=== PATIENT | male | born 1985 | race Caucasian/White ===

== ENCOUNTER 2017-10-29 00:30 | Inpatient (IN) | payer OTHER ==
[~2017-10-29] VITALS: Ht 175.3 cm; Wt 105.2 kg
[2017-10-29 01:53] LABS: Basophils # (auto) 0 uL; Basophils % (auto) 0.6 % (0.0-2.0); Eosinophils # (auto) 0.2 uL; Eosinophils % (auto) 2.8 % (0.0-7.0); Hematocrit 45.3 % (41.0-53.0); Hemoglobin 15.7 g/dL (13.5-17.5); Lymphocytes # (auto) 1.9 uL; Lymphocytes % (auto) 28.3 % (10.0-50.0); Mean Corpuscular Hemoglobin 32.7 pg (28.0-32.0); Mean Corpuscular Hgb Conc. 34.8 g/dL (32.0-36.0); Monocytes # (auto) 0.5 uL; Monocytes % (auto) 6.8 % (0.0-12.0); Neutrophils # (auto) 4.1 uL; Neutrophils % (auto) 61.5 % (37.0-80.0); Platelet Count (auto) 281 10^3/uL (140-450); Red Blood Cells 4.82 10^6/uL (4.5-5.90); Red Cell Distribution Width 12.6 % (11.8-14.3); White Blood Cell 6.7 10^3/uL (4.4-10.8)
[2017-10-29 02:08] LABS: BUN/Creatinine Ratio 8.9; Bilirubin, Total 0.6 mg/dL (0.2-1.0); Calcium 8.5 mg/dL (8.5-10.1); Magnesium 2.5 mg/dL (1.6-2.6); Potassium 4.2 mmol/L (3.5-5.1); Total Protein 7.9 g/dL (6.4-8.2)
[2017-10-29] MEDS ORDERED: NITROGLYCERIN 0.4 MG SL TAB SL PRN (07:15)
[2017-10-29] MEDS ORDERED: ONDANSETRON HCL 4 MG/2 ML VIAL IV PRN (07:15)
[2017-10-29] MEDS ORDERED: MORPHINE SULF INJ 2 MG/ML SYRINGE 1ML IV PRN (07:15)
[2017-10-29] MEDS ORDERED: ACETAMINOPHEN 500 MG TAB PO PRN (07:15)
[2017-10-29] MEDS ORDERED: PANTOPRAZOLE 40 MG/10 ML VIAL IV ONE (07:30)
[2017-10-29 08:24] LABS: Cholesterol 121 mg/dL (< 200); HDL Cholesterol 39 mg/dL (40-59); LDL Cholesterol 81 mg/dL (< 100); Triglycerides 103 mg/dL (< 150)
[2017-10-29 08:43] VITALS: BP 146/96
[2017-10-29 08:57] VITALS: BP 132/80
[2017-10-29] MEDS: ASPirin-EC 81 mg tab PO SCH (10:20)
[2017-10-29] MEDS: PANTOPRAZOLE 40 MG TAB PO SCH (10:21)
[2017-10-29 11:42] VITALS: BP 104/65
[2017-10-29 16:50] VITALS: BP 125/89
[2017-10-29 17:00] LABS: INR 1.03 (0.9-1.15); Partial Thromboplastin Time 26.6 sec (22.64-33.71); Prothrombin Time 11.2 sec (9.37-12.3)
[2017-10-29 19:41] LABS: Alcohol, Urine < 3.0 mg/dL (0-5); Amphetamine Screen, Urine NEGATIVE (NEGATIVE); Barbiturate Scree,Urine NEGATIVE (NEGATIVE); Cannabinoid Screen, Urine NEGATIVE (NEGATIVE); Cocaine Screen, Urine NEGATIVE (NEGATIVE); Opiate Scree,Urine NEGATIVE (NEGATIVE); Phencyclidine Screen, Urine NEGATIVE (NEGATIVE)
[2017-10-29 19:50] LABS: Benzodiazephine Screen, Urine NEGATIVE (NEGATIVE)
[2017-10-29] MEDS: NAPROXEN 500 MG TAB PO SCH (19:50)
[2017-10-29 22:00] VITALS: BP 108/57
[2017-10-30 05:30] VITALS: BP 111/56
[2017-10-30 07:30] VITALS: BP 98/58
[2017-10-30 08:43] VITALS: BP 98/58
[2017-10-30] MEDS ORDERED: METOPROLOL SUCCINATE XL 50 MG TAB PO SCH (10:00)
[2017-10-30] MEDS: PANTOPRAZOLE 40 MG TAB PO SCH (10:28)
[2017-10-30] MEDS: NAPROXEN 500 MG TAB PO SCH (10:28)
[2017-10-30] MEDS: ASPirin-EC 81 mg tab PO SCH (10:28)
[2017-10-30] MEDS ORDERED: OLAN15TA16 PO (10:33)
[2017-10-30] MEDS ORDERED: MIRT30TA PO (10:33)
[2017-10-30 13:00] VITALS: BP 104/68
[2017-10-30 15:55] VITALS: BP 98/58
== END 2017-10-30 16:30 | DRG 206 ==
LOC: ER 00:30 → EDBD 00:30 → EEVIPCON 00:31 → TELE 00:31 → TELE-WESTW 08:43
PROVIDERS: ADMIT Nurse Practitioner Family; ATTEND Internal Medicine
DX: M94.0 Chondrocostal junction syndrome [Tietze] (principal); I48.92 Unspecified atrial flutter; I48.0 Paroxysmal atrial fibrillation; E78.5 Hyperlipidemia, unspecified; F31.9 Bipolar disorder, unspecified; F41.9 Anxiety disorder, unspecified; J45.909 Unspecified asthma, uncomplicated; K21.9 Gastro-esophageal reflux disease without esophagitis
CPT/HCPCS: 36415; 71045; 80053; 80061; 80307; 83735; 84443; 84484; 85025; 85379; 85610; 85730; 87081; 93005; 93306; C9113